=== PATIENT | female | born 1960 | race Caucasian/White ===

== ENCOUNTER 2019-01-26 12:22 | Emergency (ER) | payer OTHER ==
--- NOTE | 2019-01-26 12:57 | ER ---
Nurse's Notes [facility] Name: Celia Steel Age: 58 yrs Sex: Female : 1960 Arrival Date: 01/26/2019 Time: 12:24 Bed 14 Private MD: Momo Dinh Diagnosis: Pain in left knee Presentation: 01/26 12:28 Presenting complaint: Patient states: Right knee pain for the past few months. Reports aj1 that she has seen Dr. Becerra for the pain and had X-rays done but they were normal. Yesterday she was mowing and she felt something "catch" and now she is having pain whenever she moves. Transition of care: patient was not received from another setting of care. Onset of symptoms was January 26, 2019. Risk Assessment: Do you want to hurt yourself or someone else? Patient reports no desire to harm self or others. Initial Sepsis Screen: Does the patient meet any 2 criteria? No. Patient's initial sepsis screen is negative. Does the patient have a suspected source of infection? No. Patient's initial sepsis screen is negative. Care prior to arrival: None. 12:28 Method Of Arrival: Ambulatory aj1 12:28 Acuity: HUNTER 4 aj1 Triage Assessment: 12:32 General: Appears in no apparent distress. comfortable, Behavior is calm, cooperative, aj1 appropriate for age. Pain: Pain currently is 4 out of 10 on a pain scale. at worst was 10 out of 10 on a pain scale. Neuro: Level of Consciousness is awake, alert, obeys commands. Cardiovascular: Patient's skin is warm and dry. Respiratory: Airway is patent Respiratory effort is even, unlabored, Respiratory pattern is regular, symmetrical. Historical: - Allergies: 12:32 No Known Allergies; aj1 - Home Meds: 12:32 levothyroxine oral [Active]; losartan oral oral [Active]; Synjardy oral oral [Active]; aj1 Trulicity subcutaneous subcutaneous [Active]; - PMHx: 12:32 Diabetes - NIDDM; Hypertension; Hypothyroidism; aj1 - Immunization history:: Flu vaccine is not up to date. - Social history:: Smoking status: Patient/guardian denies using tobacco. - Ebola Screening: : Patient denies travel to an Ebola-affected area in the 21 days before illness onset. - Family history:: not pertinent. - Hospitalizations: : No recent hospitalization is reported. Screenin:45 Abuse screen: Denies threats or abuse. Denies injuries from another. Nutritional jl7 screening: No deficits noted. Tuberculosis screening: No symptoms or risk factors identified. Fall Risk Gait- Impaired (20 pts.). Total Hussein Fall Scale indicates No Risk (0-24 pts). Assessment: 12:45 General: Appears in no apparent distress. uncomfortable, Behavior is calm, cooperative, jl7 appropriate for age. Pain: Complains of pain in left knee Pain currently is 8 out of 10 on a pain scale. Neuro: Level of Consciousness is awake, alert, obeys commands, Oriented to person, place, time, situation. Cardiovascular: Patient's skin is warm and dry. Respiratory: Airway is patent Respiratory effort is even, unlabored, Respiratory pattern is regular, symmetrical. Derm: Skin is pink, warm \\T\\ dry. Musculoskeletal: Range of motion: limited in left knee. Vital Signs: 12:32 BP 152 / 81; Pulse 74; Resp 18; Temp 97.5; Pulse Ox 97% on R/A; Weight 78.93 kg (R); aj1 Height 5 ft. 3 in. (160.02 cm) (R); Pain 4/10; 12:32 Body Mass Index 30.82 (78.93 kg, 160.02 cm) aj1 ED Course: 12:24 Patient arrived in ED. rg4 12:24 Momo Dinh MD is Private Physician. rg4 12:31 Triage completed. aj1 12:32 Arm band placed on Patient placed in an exam room. aj1 12:34 Eliezer Fatima RN is Primary Nurse. jl7 12:35 Mariusz Vinson MD is Attending Physician. rn 12:45 Patient has correct armband on for positive identification. Bed in low position. Call jl7 light in reach. Side rails up X 1. Pulse ox on. NIBP on. 12:55 Daniel Becerra MD is Referral Physician. rn 13:06 No provider procedures requiring assistance completed. Patient did not have IV access jl7 during this emergency room visit. 13:08 Knee immobilizer applied on left knee. jl7 Administered Medications: No medications were administered Outcome: 12:56 Discharge ordered by . rn 13:06 Discharged to home ambulatory, with family. jl7 13:06 Condition: stable 13:06 Discharge instructions given to patient, family, Instructed on discharge instructions, follow up and referral plans. medication usage, Demonstrated understanding of instructions, follow-up care, medications, Prescriptions given X 1. 13:08 Patient left the ED. jl7 Signatures: Amina Stiles, PABLO RN aj1 Mariusz Vinson MD MD rn Garcia, Rubi rg4 Eliezer Fatima RN RN jl7
--- NOTE | 2019-01-26 12:57 | EDPHYS ---
Physician Documentation [facility] Name: Celia Steel Age: 58 yrs Sex: Female : 1960 Arrival Date: 01/26/2019 Time: 12:24 Bed 14 Private MD: Momo Dinh ED Physician Mariusz Vinson HPI: 01/26 12:51 This 58 yrs old Female presents to ER via Ambulatory with complaints of Leg rn Pain. 12:51 The patient presents with pain, that is acute. The complaints affect the left knee. rn Onset: The symptoms/episode began/occurred today. Modifying factors: The symptoms are alleviated by remaining still, the symptoms are aggravated by movement, weight bearing, bending knee. Associated signs and symptoms: Pertinent negatives fever, rash, weakness. Severity of symptoms: At their worst the symptoms were moderate, in the emergency department the symptoms are unchanged. The patient has not experienced similar symptoms in the past. The patient has not recently seen a physician. Reports left knee pain, has had for at least a month without gross injury, seen by ortho and had neg xrays this week. States mowing yard today and felt it catch, no fall or direct trauma. Hurts to move and bend it. Better without range of motion.. Historical: - Allergies: 12:32 No Known Allergies; aj1 - Home Meds: 12:32 levothyroxine oral [Active]; losartan oral oral [Active]; Synjardy oral oral [Active]; aj1 Trulicity subcutaneous subcutaneous [Active]; - PMHx: 12:32 Diabetes - NIDDM; Hypertension; Hypothyroidism; aj1 - Immunization history:: Flu vaccine is not up to date. - Social history:: Smoking status: Patient/guardian denies using tobacco. - Ebola Screening: : Patient denies travel to an Ebola-affected area in the 21 days before illness onset. - Family history:: not pertinent. - Hospitalizations: : No recent hospitalization is reported. ROS: 12:51 Constitutional: Negative for fever, chills, and weight loss, MS/Extremity: Negative for rn deformity. Exam: 12:51 Constitutional: This is a well developed, well nourished patient who is awake, alert, rn and in no acute distress. MS/ Extremity: Pulses equal, no cyanosis. Neurovascular intact. No bony tenderness or bruising, no patellar tenderness. Painful ROM left knee. Vital Signs: 12:32 BP 152 / 81; Pulse 74; Resp 18; Temp 97.5; Pulse Ox 97% on R/A; Weight 78.93 kg (R); aj1 Height 5 ft. 3 in. (160.02 cm) (R); Pain 4/10; 12:32 Body Mass Index 30.82 (78.93 kg, 160.02 cm) aj1 MDM: 12:35 Patient medically screened. rn 12:51 Differential diagnosis: tendonitis, internal derangement of knee. Data reviewed: vital rn signs, nurses notes, and as a result, I will discharge patient. Counseling: I had a detailed discussion with the patient and/or guardian regarding: the historical points, exam findings, and any diagnostic results supporting the discharge/admit diagnosis, the need for outpatient follow up, to return to the emergency department if symptoms worsen or persist or if there are any questions or concerns that arise at home. Special discussion: I discussed with the patient/guardian in detail that at this point there is no indication for admission to the hospital. It is understood, however, that if the symptoms persist or worsen the patient needs to return immediately for re-evaluation. Based on the history and exam findings, there is no indication for further emergent testing or inpatient evaluation. I discussed with the patient/guardian the need to see the orthopedic surgeon for further evaluation of the symptoms. ED course: Offered xray of knee, patient declines, told her she needs outpt MRI left knee. Knee immobilized. . 01/26 12:57 Order name: Knee Immobilizer; Complete Time: 13:05 rn Administered Medications: No medications were administered Disposition: 01/26/19 12:56 Discharged to Home. Impression: Pain in left knee. - Condition is Stable. - Discharge Instructions: Musculoskeletal Pain, Knee Pain. - Prescriptions for Tylenol- Codeine #3 300-30 mg Oral Tablet - take 1 tablet by ORAL route every 6 hours As needed; 15 tablet. - Medication Reconciliation Form, Thank You Letter, Antibiotic Education, Prescription Opioid Use form. - Follow up: Daniel Becerra MD; When: As needed; Reason: Recheck today's complaints, Re-evaluation by your physician. - Problem is new. - Symptoms have improved. Signatures: Amina Stiles RN RN aj1 Mariusz Vinson MD MD rn Leal, Jahala, RN RN jl7 Corrections: (The following items were deleted from the chart) 13:08 12:56 01/26/2019 12:56 Discharged to Home. Impression: Pain in left knee. Condition is jl7 Stable. Forms are Medication Reconciliation Form, Thank You Letter, Antibiotic Education, Prescription Opioid Use. Follow up: Daniel Becerra; When: As needed; Reason: Recheck today's complaints, Re-evaluation by your physician. Problem is new. Symptoms have improved. rn
[2019-01-26 13:20] VITALS: BP 152/81; TEMP 97.5; O2SAT 97
== END 2019-01-26 13:08 | disposition home or self-care (01) ==
LOC: ER 12:22
DX: M25.562 Pain in left knee (principal); I10 Essential (primary) hypertension; E11.9 Type 2 diabetes mellitus without complications; E03.9 Hypothyroidism, unspecified; Z79.4 Long term (current) use of insulin
CPT/HCPCS: 99283